=== PATIENT | male | born 2000 | race Caucasian/White ===

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

== ENCOUNTER 2021-06-30 16:55 | Emergency (ER) | payer SELFPAY ==
[2021-06-30 16:56] VITALS: BP 134/72; PULSE 73; RESP 14; TEMP 37; O2SAT 99; BMI 22.1
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
--- NOTE | 2021-06-30 17:28 | EX.ED.UPPERE ---
HPI History of Present Illness Chief Complaint: Upper Extremity Injury Informant: patient Occured/Mechanism Mechanism/Context: Yes crush Onset/Context/Timing Onset: Today Current Severity: Moderate Maximum Severity: Moderate Narrative Narrative: Patient presents with crush injury to the left index finger. He was splitting logs when he got his finger caught between a log in the splitter. Was not wearing gloves. He is right-hand dominant. PFSH PFSH no medical history Home Medications NK 09/27/20 [History Last Taken Unknown] Allergy/AdvReac Type Severity Reaction Status Date / Time No Known Allergies Allergy Verified 06/30/21 16:55 Social History Smoking Status: Never smoker ROS ROS ED Constitutional Constitutional ED: Denies chills or fever(s) Eyes Eyes: Denies change in vision ENT ENT ED: Denies sore throat Cardiovascular Cardiovascular: Denies chest pain Respiratory/Chest Respiratory/Chest: Denies cough or dyspnea Gastrointestinal Gastrointestinal: Reports diarrhea, nausea and vomiting; Denies abdominal pain Genitourinary Genitourinary ED: Reports dysuria Musculoskeletal Musculoskeletal: Reports other Details: Left hand pain Integumentary Denies rash Neurologic Neurologic: Denies headache(s), paresthesias or weakness Psychiatric Psychiatric: Denies anxiety or depression Allergic/Immunologic Allergic/Immunologic ED: Denies urticaria EXAM Physical Exam Const Vital Signs: 06/30/21 16:56 Temperature 98.6 F Temperature Source Temporal Pulse Rate 73 Respiratory Rate 14 Blood Pressure 134/72 H Blood Pressure Mean 92 Pulse Ox 99 Oxygen Delivery Method Room Air Positive well nourished and well developed General Appearance ED: well developed HEENT normocephalic Chest Wall inspection of chest normal and palpation of chest normal Resp normal respiratory effort and clear to auscultation bilaterally Cardio regular rate and regular rhythm GI non-tender Palpation: soft Extremity Extremity Narrative: Subungual hematoma left index finger. No open wounds noted. Able to flex and extend. Good cap refill distally. Neuro oriented x3 Sensorium / Orientation: alert MDM MDM MDM Narrative Medical decision making narrative: Left hand/finger x-rays obtained per nursing protocol. Patient given 1 tab of [place] and naproxen. Treatment and Re-Evaluation Comments:: X-rays per my interpretation reveal no evidence of acute fracture. Radiologist interpretation is reviewed. Hand is cleansed. 18-gauge needle is used to puncture the left index nail to drain blood. Patient tolerated this well. Discharge Plan Triage Chief Complaint: Upper Extremity Injury ED Provider: Ann Hull Dx/Rx/DC Orders Clinical Impression: Crushing injury of left index finger, Subungual hematoma Instructions: Subungual Hematoma, ED Crush Injury, Hand Prescriptions: No Action NK RF: 0 Primary Care Provider: Care Physician,No Primary Referrals: Jared Pierre MD [STAFF PHYSICIAN] - As Needed Care Physician,No Primary [Primary Care Provider] - Disposition Disposition: Home, Self Care
[2021-06-30] MEDS: Naproxen 500 MG Tablet PO (17:44)
[2021-06-30] MEDS: HYDROcodone Bitartrate/Apap 5/325 Tablet PO (17:44)
[2021-06-30 19:10] VITALS: BP 132/70; PULSE 70; RESP 16; O2SAT 99
== END 2021-06-30 19:11 | disposition home or self-care (01) ==
PROVIDERS: Emergency Provider Emergency Medicine
DX: S67.191A Crushing injury of left index finger, initial encounter (principal); S60.122A Contusion of left index finger with damage to nail, initial encounter; W23.0XXA Caught, crushed, jammed, or pinched between moving objects, initial encounter; Y93.89 Activity, other specified; Y92.9 Unspecified place or not applicable; Y99.9 Unspecified external cause status
CPT/HCPCS: 11740; 73130; 73140; 99283

== ENCOUNTER 2024-02-04 18:58 | Emergency (ER) | payer SELFPAY ==
[2024-02-04 18:59] VITALS: BP 122/75; PULSE 71; RESP 16; TEMP 36.4; O2SAT 98; BMI 22.4
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
[2024-02-04 20:41] VITALS: BP 122/64; PULSE 82; RESP 18; TEMP 36.7; O2SAT 98
== END 2024-02-04 20:42 | disposition home or self-care (01) ==
PROVIDERS: Emergency Provider Emergency Medicine; Visit Provider Emergency Medicine
DX: S16.1XXA Strain of muscle, fascia and tendon at neck level, initial encounter (principal); V49.40XA Driver injured in collision with unspecified motor vehicles in traffic accident, initial encounter; F17.210 Nicotine dependence, cigarettes, uncomplicated; Y92.410 Unspecified street and highway as the place of occurrence of the external cause
CPT/HCPCS: 70450; 72125; 99282